=== PATIENT | male | born 1990 | race Two or more races ===

== ENCOUNTER 2019-02-23 19:14 | Emergency (ER) | payer MEDICAID ==
[~2019-02-23] VITALS: Ht 190.5 cm; Wt 89.8 kg
[~2019-02-23 19:14] MED LIST: METF-849 PO
[2019-02-23 19:28] VITALS: Ht 190.5 cm; Wt 89.8 kg
[2019-02-23] MEDS ORDERED: SOD CHLORIDE 0.9% 1,000 ML IV STA (20:00)
[2019-02-23] MEDS ORDERED: INSULIN LISPRO 100 UNIT/ML VIAL SC ONE (20:00)
[2019-02-23] MEDS ORDERED: ACCU-CHEK XX ONE (20:30)
[2019-02-23] MEDS ORDERED: DEXTROSE 50% 50 ML SYRINGE IV PRN ×2 (20:30)
[2019-02-23] MEDS ORDERED: GLUCOSE GEL 15 GRAM TUBE BUCCAL PRN (20:30)
[2019-02-23] MEDS ORDERED: GLUCAGON 1 MG INJ IM PRN (20:30)
[2019-02-23] MEDS ORDERED: GLUCOSE GEL 15 GRAM TUBE PO PRN ×2 (20:30)
[2019-02-23 21:55] VITALS: BP 118/79; PULSE 65; RESP 19
== END 2019-02-23 21:55 | disposition home or self-care (01) ==
LOC: E/R 19:14
DX: E11.42 Type 2 diabetes mellitus with diabetic polyneuropathy (principal); F17.210 Nicotine dependence, cigarettes, uncomplicated; E11.65 Type 2 diabetes mellitus with hyperglycemia; Z79.84 Long term (current) use of oral hypoglycemic drugs
CPT/HCPCS: 36415; 80053; 80307; 82962; 83690; 85025; 96372; J1815; J7030; Z7502